=== PATIENT | female | born 1940 | race Caucasian/White ===

== ENCOUNTER 2018-04-11 13:47 | Emergency (ER) | payer MEDICARE, BC, SELFPAY ==
[2018-04-11 13:57] VITALS: BP 146/63; PULSE 77; RESP 15; TEMP 36.2; O2SAT 98; BMI 27.9
--- NOTE | 2018-04-11 14:07 | DI.RAD.S_ITS ---
PROCEDURE: XR ACUTE ABDOMEN SERIES INDICATIONS: constipation TECHNIQUE: One view chest and two views of the abdomen were acquired. COMPARISON: None. FINDINGS: Surgical changes and devices: Cholecystectomy and right hip arthroplasty. Chest: Lungs are clear. Heart size is normal. No pleural effusions. No pneumoperitoneum. Abdomen: Large amount of stool in colon. Bowel gas pattern is normal. No suspicious calcifications. Visualized solid organ contours appear normal. Bones: No suspicious bony lesions. Degenerative changes noted in lumbar spine. IMPRESSION: Proximal screw and colon. Dictated by: Fabio Martins M.D. on 04/11/2018 at 16:26 Approved by: Fabio Martins M.D. on 04/11/2018 at 16:27
--- NOTE | 2018-04-11 15:16 | ED.ABDPAIN ---
HPI - Abdominal Pain <Carrie Chirinos PA-C - Last Filed: 04/11/18 18:26> General Chief Complaint: Abdominal Pain Stated Complaint: CONSTIPATION,NAUSEA Time Seen by Provider: 04/11/18 15:16 Source: patient Mode of arrival: ambulatory Limitations: no limitations History of Present Illness HPI narrative: This 78-year-old female comes to the ED today due to constipation. She states her last bowel movement was 2 days ago. She traveled here yesterday from [place]. She states that she tried a Dulcolax suppository and minimal oil type enema this morning and no bowel movement. She states she began to feel somewhat cold and had nausea mainly when sitting on the toilet. She has not had new vomiting or fever. She states that she has been changed her diet with the nerve protein sources now, does not like to eat much in the way of vegetables or greens. She denies any urinary symptoms. She denies any abdominal pain or other new complaints on systems review. She states normally she has a bowel movement every day Related Data Home Medications Medication Instructions Recorded Confirmed Fish Oil 1 cap PO DAILY 04/11/18 04/11/18 albuterol sulfate [ProAir 1 puff INHALATION DIRECTED 04/11/18 04/11/18 RespiClick] amlodipine 1 tab PO DAILY 04/11/18 04/11/18 aspirin 81 mg PO DAILY 04/11/18 04/11/18 atorvastatin 1 tab PO DAILY 04/11/18 04/11/18 azelastine-fluticasone [Dymista] 1 spray INTRANASAL BID 04/11/18 04/11/18 cholecalciferol (vitamin D3) 2,000 unit PO DAILY 04/11/18 04/11/18 [Vitamin D3] ciclesonide [Alvesco] 1 puff INHALATION BID 04/11/18 04/11/18 coenzyme Q10 [Co Q-10] 200 mg PO DAILY 04/11/18 04/11/18 fluticasone-salmeterol [Advair 1 puff INHALATION BID 04/11/18 04/11/18 Diskus] immune globul G-gly-IgA avg 46 1 dose SUB-Q DIRECTED 04/11/18 04/11/18 [Gamunex-C] losartan 200 mg PO DAILY 04/11/18 04/11/18 nitroglycerin [Nitrostat] 0.4 mg SUBLINGUAL Q5MIN 04/11/18 04/11/18 pantoprazole 40 mg PO DAILY 04/11/18 04/11/18 sertraline 50 mg PO DAILY 04/11/18 04/11/18 turmeric root extract 500 mg PO BID 04/11/18 04/11/18 Allergies Allergy/AdvReac Type Severity Reaction Status Date / Time Sulfa (Sulfonamide Allergy Verified 04/11/18 13:57 Antibiotics) Review of Systems <Carrie Chirinos PA-C - Last Filed: 04/11/18 18:26> Review of Systems All systems reviewed & are unremarkable except as noted in HPI and below Exam <Carrie Chirinos PA-C - Last Filed: 04/11/18 18:26> Narrative Exam Narrative: GENERAL APPEARANCE: Patient sitting comfortably, in no distress. HEENT: PERRL, EOMI, no scleral icterus NECK: Supple LUNGS: Clear to auscultation bilaterally. HEART: Rate and rhythm regular, normal S1 and S2, no S3 or S4. ABDOMEN: Soft, nontender, nondistended, bowel sounds present x 4 quadrants, no masses palpable, no hepatosplenomegaly. EXTREMITIES: No edema, no cyanosis DERMATOLOGIC: No jaundice or exanthem NEUROLOGIC: Alert and oriented with normal speech and coordination RECTAL: There is 1 piece of firm brown stool in the vault and also soft brown stool present, guaiac negative. 1 small mildly inflamed external hemorrhoid visible at 2 o'clock Initial Vital Signs Initial Vital Signs: Vital Signs Temperature 97.1 F L 04/11/18 13:57 Pulse Rate 77 04/11/18 13:57 Respiratory Rate 15 04/11/18 13:57 Blood Pressure 146/63 H 04/11/18 13:57 Pulse Oximetry 98 04/11/18 13:57 <Angy Alva DO - Last Filed: 04/13/18 14:47> Initial Vital Signs Initial Vital Signs: Vital Signs Temperature 97.1 F L 04/11/18 13:57 Pulse Rate 77 04/11/18 13:57 Respiratory Rate 15 04/11/18 13:57 Blood Pressure 146/63 H 04/11/18 13:57 Pulse Oximetry 98 04/11/18 13:57 Course <Carrie Chirinos PA-C - Last Filed: 04/11/18 18:26> Additional Information: Patient was able to urinate and had at least a partial bowel movement prior to discharge. Reported feeling better. Orders Ordered: ED Orders 04/11/18 14:07 XR acute abdomen series Stat Vital Signs - 8 hr 04/11/18 13:57 04/11/18 17:31 Temperature 97.1 F L Pulse Rate 77 98 H Respiratory Rate 15 24 Blood Pressure 146/63 H Blood Pressure [Left Arm] 126/56 H Pulse Oximetry 98 95 <Angy Alva DO - Last Filed: 04/13/18 14:47> Orders Ordered: ED Orders 04/11/18 14:07 XR acute abdomen series Stat Vital Signs - 8 hr 04/11/18 13:57 04/11/18 17:31 Temperature 97.1 F L Pulse Rate 77 98 H Respiratory Rate 15 24 Blood Pressure 146/63 H Blood Pressure [Left Arm] 126/56 H Pulse Oximetry 98 95 Discharge Plan Departure Patient Disposition: Home, Self-Care Clinical Impression: Constipation Discharge Date/Time: 04/11/18 17:34 Interventions: ED Discharge Assessment Last Done: 04/11/18 17:34 Instructions: DI for Constipation Activity Restrictions/Additional Instructions: I suspect that your constipation was caused by recent diet changes as well as travel and not drinking much fluid. Typical bowel movement frequency is 1-3 days. Please increase your fiber and fluid intake and fruit can be helpful as well. You may wish to take a stool softener while you are traveling since you have noticed hard stool. If you have any recurrent constipation, you may wish to try mixin serving of Maalox and Mylanta with 4-6 oz of prune juice and apple juice. This is more gentle then many other laxatives. Please return if you have worsening constipation, vomiting, new pain or fever Prescriptions: No Action atorvastatin 40 mg tablet 1 tab PO DAILY RF: 0 fluticasone-salmeterol [Advair Diskus] 250-50 mcg/dose blister with device 1 puff Inhalation BID RF: 0 sertraline 100 mg tablet 50 mg PO DAILY RF: 0 amlodipine 2.5 mg tablet 1 tab PO DAILY RF: 0 pantoprazole 40 mg tablet,delayed release (DR/EC) 40 mg PO DAILY RF: 0 losartan 100 mg tablet 200 mg PO DAILY RF: 0 ciclesonide [Alvesco] 160 mcg/actuation HFA aerosol inhaler 1 puff Inhalation BID RF: 0 albuterol sulfate [ProAir RespiClick] 90 mcg/actuation aerosol powdr breath activated 1 puff Inhalation DIRECTED RF: 0 aspirin 81 mg Tablet,Delayed Release (Dr/Ec) 81 mg PO DAILY RF: 0 immune globul G-gly-IgA avg 46 [Gamunex-C] 5 gram/50 mL (10 %) solution 1 dose Sub-Q DIRECTED RF: 0 azelastine-fluticasone [Dymista] 137-50 mcg/spray spray,non-aerosol 1 spray Intranasal BID RF: 0 coenzyme Q10 [Co Q-10] 200 mg Capsule 200 mg PO DAILY RF: 0 Fish Oil 1,360 MG capsule 1 cap PO DAILY RF: 0 nitroglycerin [Nitrostat] 0.4 mg Tablet, Sublingual 0.4 mg SUBLINGUAL Q5MIN RF: 0 cholecalciferol (vitamin D3) [Vitamin D3] 2,000 unit Capsule 2,000 unit PO DAILY RF: 0 turmeric root extract 500 mg Capsule 500 mg PO BID RF: 0 <Angy Alva, DO - Last Filed: 04/13/18 14:47> Cosign ED Attending Coskrisature Attestation: I was immediately available in the department for consultation. Documentation has been reviewed. I agree with assessment and plan.
--- NOTE | 2018-04-11 16:29 | PC.NURSE ---
following up with radiology result.
[2018-04-11 17:31] VITALS: BP 126/56; PULSE 98; RESP 24; O2SAT 95
== END 2018-04-11 17:34 | disposition home or self-care (01) ==
PROVIDERS: Emergency Provider Internal Medicine
DX: K59.00 Constipation, unspecified (principal)
CPT/HCPCS: 51798; 74022; 99283; 99284